=== PATIENT | female | born 1990 | race Two or more races ===

== ENCOUNTER 2025-04-29 17:28 | Emergency (ER) | payer OTHER ==
[~2025-04-29] VITALS: Ht 154.9 cm; Wt 86.2 kg
[2025-04-29] MEDS ORDERED: TENORMIN25 MG PO (17:37)
== END 2025-04-29 20:58 | disposition home or self-care (01) ==
LOC: ER 17:55
DX: T17.200A Unspecified foreign body in pharynx causing asphyxiation, initial encounter (principal); J02.9 Acute pharyngitis, unspecified; R09.89 Other specified symptoms and signs involving the circulatory and respiratory systems; I10 Essential (primary) hypertension; Z91.013 Allergy to seafood